=== PATIENT | male | born 1955 | race Caucasian/White ===

== ENCOUNTER 2021-01-18 13:39 | Inpatient (IN) | payer OTHER ==
[2021-01-18] MEDS ORDERED: CEFTRIAXONE 2,000 MG in DEXTROSE 5%-WATER - 50 ML IVPB ONE (14:27)
[2021-01-18 15:04] LABS: EOS % 2.2 % (0-4.5); HEMATOCRIT 40.7 % (35.4-49); HEMOGLOBIN 14.1 GM/dl (11.7-16.9); LYMPH % 36.9 % (8-40); MCH 31.8 pg (25.7-33.7); MCHC 34.6 g/dl (32.0-35.9); MEAN PLT VOLUME 7.6 fl (7.5-11.1); MONO % 11.9 % (3.8-10.2); PLATELET COUNT 141 K/MM3 (134-434); RBC 4.42 M/mm3 (4.00-5.60); RDW 13.2 % (11.9-15.9); WHITE BLOOD COUNT 4.2 K/mm3 (4.0-10.8)
[2021-01-18 15:18] LABS: ALBUMIN 4.1 g/dl (3.4-5.0); ALK PHOS 88 U/L (45-117); ANION GAP 13 MMOL/L (8-16); BILIRUBIN,TOTAL 0.6 mg/dl (0.2-1); CALCIUM 9.1 mg/dl (8.5-10); CHLORIDE 99 mmol/L (98-107); CO2 25 mmol/L (21-32); CREATININE 0.9 mg/dl (0.55-1.3); GLUCOSE,RANDOM 89 mg/dl (74-106); SGOT/AST 70 U/L (15-37); SGPT/ALT 55 U/L (13-61); SODIUM 137 mmol/L (136-145); TOT PROT 7.4 g/dl (6.4-8.2)
[2021-01-18 15:55] LABS: ERYTHROCYTE SEDIMENTATION RATE 13 mm/hr (0-20)
[2021-01-18 18:05] VITALS: BMI 23.6
[2021-01-18] MEDS ORDERED: ALBUTEROL SO4 HFA INHALER IH PRN (20:37)
[2021-01-18] MEDS ORDERED: FOLIC ACID INJECTION - 1 MG, THIAMINE HCL 100 MG, MULTIVIT INJECTION ADULT 10 ML in SOD... IVPB ONE (21:01)
[2021-01-18] MEDS ORDERED: chlordiazePOXIDE HCL 25 MG CAPSULE PO PRN (21:02)
[2021-01-18] MEDS ORDERED: ATORVASTATIN CA 10 MG TABLET (FP) PO SCH (22:00)
[2021-01-18] MEDS: chlordiazePOXIDE HCL 25 MG CAPSULE PO SCH (23:00)
[2021-01-19] MEDS: chlordiazePOXIDE HCL 25 MG CAPSULE PO SCH ×2 (05:22→11:24)
[2021-01-19 07:08] LABS: BASO % 2.3 % (0-2.0); EOS % 7.5 % (0-4.5); HEMATOCRIT 43.5 % (35.4-49); HEMOGLOBIN 14.7 GM/dl (11.7-16.9); LYMPH % 30.7 % (8-40); MCH 31.3 pg (25.7-33.7); MCHC 33.7 g/dl (32.0-35.9); MEAN CELL VOLUME 92.9 fl (80-96); MONO % 12.5 % (3.8-10.2); PLATELET COUNT 131 K/MM3 (134-434); RBC 4.69 M/mm3 (4.00-5.60); RDW 13.3 % (11.9-15.9); WHITE BLOOD COUNT 4.2 K/mm3 (4.0-10.8)
[2021-01-19 07:25] LABS: ALBUMIN 3.7 g/dl (3.4-5.0); BILIRUBIN,TOTAL 1.1 mg/dl (0.2-1); CALCIUM 8.6 mg/dl (8.5-10); TOT PROT 6.7 g/dl (6.4-8.2)
[2021-01-19] MEDS ORDERED: DEXTROSE 5%-WATER 100 ML IVPB ONE (08:15)
[2021-01-19 08:53] VITALS: BP 148/76; PULSE 57; TEMP 98.6
[2021-01-19] MEDS ORDERED: CEFTRIAXONE 2 GM in DEXTROSE 5%-WATER 2 GM/100 ML BAG IVPB SCH (10:00)
[2021-01-19] MEDS ORDERED: THIAMINE HCL 100 MG TABLET (FP) PO SCH (10:00)
[2021-01-19] MEDS ORDERED: MULTIVITAMINS (DAILY MVI) TABLET (FP) PO SCH (10:00)
[2021-01-19] MEDS ORDERED: ASPIRIN 81 MG CHEWABLE TABLETS PO SCH (10:00)
[2021-01-20] MEDS ORDERED: chlordiazePOXIDE HCL 25 MG CAPSULE PO SCH (05:00)
[2021-01-21] MEDS ORDERED: chlordiazePOXIDE HCL 10 MG CAPSULE PO PRN
[2021-01-21] MEDS ORDERED: chlordiazePOXIDE HCL 10 MG CAPSULE PO SCH (05:00)
[2021-01-22] MEDS ORDERED: chlordiazePOXIDE HCL 10 MG CAPSULE PO SCH (05:00)
[2021-01-23] MEDS ORDERED: chlordiazePOXIDE HCL 10 MG CAPSULE PO ONE (05:00)
== END 2021-01-19 14:29 | disposition home or self-care (01) | DRG 724 ==
LOC: FER 13:39 → FM/S 15:04
PROVIDERS: ADMIT Internal Medicine; ATTEND Nurse Practitioner Acute Care
DX: A69.23 Arthritis due to Lyme disease (principal); I10 Essential (primary) hypertension; E78.5 Hyperlipidemia, unspecified; F10.230 Alcohol dependence with withdrawal, uncomplicated; Z20.822 Contact with and (suspected) exposure to COVID-19; M25.561 Pain in right knee; F10.280 Alcohol dependence with alcohol-induced anxiety disorder
CPT/HCPCS: 36415; 80053; 80307; 85025; 85651; 86140; 86618; 93005; 99285-25; C9803; U0003; U0005

== ENCOUNTER 2021-02-03 13:15 | Day surgery (SDC) | payer OTHER ==
[~2021-02-03 13:15] MED LIST: CEFTRIAXONE 2 GM in DEXTROSE 5%-WATER 100 ML IVPB ONE
[2021-02-03] MEDS ORDERED: DEXTROSE 5%-WATER 100 ML IVPB ONE (14:13)
[2021-02-03] MEDS ORDERED: CEFTRIAXONE 2 GM in DEXTROSE 5%-WATER 100 ML IVPB ONE (14:15)
[2021-02-03 15:06] VITALS: BP 144/73; PULSE 70; TEMP 98
== END 2021-02-03 15:00 | disposition home or self-care (01) ==
LOC: JINFUSION 13:15 → J7W 13:21 → JINFUSION 15:00
PROVIDERS: ATTEND Internal Medicine Infectious Disease
PROC: 3E033GC Introduction of Other Therapeutic Substance into Peripheral Vein, Percutaneous Approach (ICD-10-PCS; principal; 2021-02-03)
DX: A69.23 Arthritis due to Lyme disease (principal)
CPT/HCPCS: 96365

== ENCOUNTER 2021-02-04 09:59 | Day surgery (SDC) | payer OTHER ==
[2021-02-04] MEDS ORDERED: CEFTRIAXONE 2 GM in DEXTROSE 5%-WATER 100 ML IVPB ONE (10:00)
[2021-02-04] MEDS ORDERED: DEXTROSE 5%-WATER 100 ML IVPB ONE (10:07)
[2021-02-04 10:27] VITALS: TEMP 98.6
[2021-02-04 11:02] VITALS: BP 114/79; PULSE 56
== END 2021-02-04 11:00 | disposition home or self-care (01) ==
LOC: J7W 09:59 → JINFUSION 09:59
PROVIDERS: ATTEND Internal Medicine Infectious Disease
PROC: 3E033GC Introduction of Other Therapeutic Substance into Peripheral Vein, Percutaneous Approach (ICD-10-PCS; principal; 2021-02-04)
DX: A69.23 Arthritis due to Lyme disease (principal)
CPT/HCPCS: 96365

== ENCOUNTER 2021-02-05 09:35 | Day surgery (SDC) | payer OTHER ==
[2021-02-05 09:52] VITALS: TEMP 97.8
[2021-02-05] MEDS ORDERED: DEXTROSE 5%-WATER 100 ML IVPB ONE (10:00)
[2021-02-05] MEDS ORDERED: CEFTRIAXONE 2 GM in DEXTROSE 5%-WATER 100 ML IVPB ONE (10:00)
[2021-02-05 11:03] VITALS: BP 120/66; PULSE 68
== END 2021-02-05 11:04 | disposition home or self-care (01) ==
LOC: JINFUSION 09:35 → J7W 09:35 → JINFUSION 11:04
PROVIDERS: ATTEND Internal Medicine Infectious Disease
DX: A69.23 Arthritis due to Lyme disease (principal)
CPT/HCPCS: 96365

== ENCOUNTER 2021-02-06 09:19 | Day surgery (SDC) | payer OTHER ==
[2021-02-06] MEDS ORDERED: CEFTRIAXONE 2 GM in DEXTROSE 5%-WATER 100 ML IVPB ONE (10:00)
[2021-02-06] MEDS ORDERED: DEXTROSE 5%-WATER 100 ML IVPB ONE (10:18)
[2021-02-06 11:42] VITALS: BP 114/69; PULSE 62; TEMP 98.6
== END 2021-02-06 10:30 | disposition home or self-care (01) ==
LOC: JINFUSION 09:19 → J7W 09:19 → JINFUSION 10:30
PROVIDERS: ATTEND Internal Medicine Infectious Disease
PROC: 3E033GC Introduction of Other Therapeutic Substance into Peripheral Vein, Percutaneous Approach (ICD-10-PCS; principal; 2021-02-06)
DX: A69.23 Arthritis due to Lyme disease (principal)
CPT/HCPCS: 96365

== ENCOUNTER 2021-02-07 09:51 | Day surgery (SDC) | payer OTHER ==
[2021-02-07] MEDS ORDERED: CEFTRIAXONE 2 GM in DEXTROSE 5%-WATER 100 ML IVPB ONE (10:00)
[2021-02-07] MEDS ORDERED: DEXTROSE 5%-WATER 100 ML IVPB ONE (10:28)
[2021-02-07 11:11] VITALS: BP 132/66; PULSE 52; TEMP 98.8
== END 2021-02-07 11:12 | disposition home or self-care (01) ==
LOC: J7W 09:51 → JINFUSION 09:51
PROVIDERS: ATTEND Internal Medicine Infectious Disease
PROC: 3E033GC Introduction of Other Therapeutic Substance into Peripheral Vein, Percutaneous Approach (ICD-10-PCS; principal; 2021-02-07)
DX: A69.23 Arthritis due to Lyme disease (principal)
CPT/HCPCS: 96365

== ENCOUNTER 2021-02-08 09:59 | Day surgery (SDC) | payer OTHER ==
[2021-02-08] MEDS ORDERED: DEXTROSE 5%-WATER 100 ML IVPB ONE (10:04)
[2021-02-08 10:20] VITALS: TEMP 98
[2021-02-08 15:31] VITALS: BP 117/67; PULSE 81
== END 2021-02-08 13:26 | disposition home or self-care (01) ==
LOC: JINFUSION 09:59 → J7W 10:00 → JINFUSION 13:26
PROVIDERS: ATTEND Internal Medicine Infectious Disease
PROC: 3E033GC Introduction of Other Therapeutic Substance into Peripheral Vein, Percutaneous Approach (ICD-10-PCS; principal; 2021-02-08)
DX: A69.23 Arthritis due to Lyme disease (principal)
CPT/HCPCS: 96365

== ENCOUNTER 2021-02-09 10:21 | Day surgery (SDC) | payer OTHER ==
[2021-02-09] MEDS ORDERED: CEFTRIAXONE 2 GM in DEXTROSE 5%-WATER 100 ML IVPB ONE (10:30)
[2021-02-09] MEDS ORDERED: DEXTROSE 5%-WATER 100 ML IVPB ONE (10:40)
== END 2021-02-09 15:10 | disposition home or self-care (01) ==
LOC: JINFUSION 10:21 → J7W 10:21 → JINFUSION 15:10
PROVIDERS: ATTEND Internal Medicine Infectious Disease
PROC: 3E033GC Introduction of Other Therapeutic Substance into Peripheral Vein, Percutaneous Approach (ICD-10-PCS; principal; 2021-02-09)
DX: A69.23 Arthritis due to Lyme disease (principal)
CPT/HCPCS: 96365

== ENCOUNTER 2021-02-10 09:51 | Day surgery (SDC) | payer OTHER ==
[2021-02-10] MEDS ORDERED: DEXTROSE 5%-WATER 100 ML IVPB ONE (09:53)
[2021-02-10 10:13] VITALS: TEMP 98.5
[2021-02-10] MEDS ORDERED: CEFTRIAXONE 2 GM in DEXTROSE 5%-WATER 100 ML IVPB ONE (10:30)
[2021-02-10 10:59] VITALS: BP 113/64; PULSE 59
== END 2021-02-10 10:50 | disposition home or self-care (01) ==
LOC: J7W 09:51 → JINFUSION 09:51
PROVIDERS: ATTEND Internal Medicine Infectious Disease
PROC: 3E013GC Introduction of Other Therapeutic Substance into Subcutaneous Tissue, Percutaneous Approach (ICD-10-PCS; principal; 2021-02-10)
DX: A69.23 Arthritis due to Lyme disease (principal)
CPT/HCPCS: 96365

== ENCOUNTER 2021-02-11 09:14 | Day surgery (SDC) | payer OTHER ==
[2021-02-11] MEDS ORDERED: CEFTRIAXONE 2 GM in DEXTROSE 5%-WATER 100 ML IVPB ONE (10:00)
[2021-02-11 14:20] VITALS: PULSE 56; TEMP 98.3
[2021-02-11 14:22] VITALS: BP 110/67
== END 2021-02-11 14:49 | disposition home or self-care (01) ==
LOC: JINFUSION 09:14 → J7W 09:16 → JINFUSION 14:49
PROVIDERS: ATTEND Internal Medicine Infectious Disease
PROC: 3E013GC Introduction of Other Therapeutic Substance into Subcutaneous Tissue, Percutaneous Approach (ICD-10-PCS; principal; 2021-02-11)
DX: A69.23 Arthritis due to Lyme disease (principal)
CPT/HCPCS: 96365

== ENCOUNTER 2021-02-12 09:59 | Day surgery (SDC) | payer OTHER ==
[2021-02-12] MEDS ORDERED: DEXTROSE 5%-WATER 100 ML IVPB ONE (10:23)
[2021-02-12 14:36] VITALS: BP 130/75; PULSE 76
== END 2021-02-12 14:36 | disposition home or self-care (01) ==
LOC: JINFUSION 09:59 → J7W 10:00 → JINFUSION 14:36
PROVIDERS: ATTEND Internal Medicine Infectious Disease
DX: A69.23 Arthritis due to Lyme disease (principal)
CPT/HCPCS: 96365

== ENCOUNTER 2021-02-13 10:13 | Day surgery (SDC) | payer OTHER ==
[2021-02-13] MEDS ORDERED: DEXTROSE 5%-WATER 100 ML IVPB ONE (10:47)
[2021-02-13 11:03] VITALS: BP 108/65; PULSE 60; TEMP 98.3
== END 2021-02-13 14:37 | disposition home or self-care (01) ==
LOC: JINFUSION 10:13 → J7W 10:14 → JINFUSION 14:37
PROVIDERS: ATTEND Internal Medicine Infectious Disease
DX: A69.23 Arthritis due to Lyme disease (principal)
CPT/HCPCS: 96365

== ENCOUNTER 2021-02-14 10:05 | Day surgery (SDC) | payer OTHER ==
[~2021-02-14 10:05] MED LIST changes: +CEFTRIAXONE 2 GM in DEXTROSE 5%-WATER - 100 ML IVPB ONE
[2021-02-14] MEDS ORDERED: DEXTROSE 5%-WATER 100 ML IVPB ONE (10:14)
[2021-02-14 12:28] VITALS: TEMP 98
[2021-02-14 16:28] VITALS: BP 135/78; PULSE 67
== END 2021-02-14 16:28 | disposition home or self-care (01) ==
LOC: J7W 10:05 → JINFUSION 10:05
PROVIDERS: ATTEND Internal Medicine Infectious Disease
PROC: 3E033GC Introduction of Other Therapeutic Substance into Peripheral Vein, Percutaneous Approach (ICD-10-PCS; principal; 2021-02-14)
DX: A69.23 Arthritis due to Lyme disease (principal)
CPT/HCPCS: 96365

== ENCOUNTER 2021-02-15 09:48 | Day surgery (SDC) | payer OTHER ==
[~2021-02-15 09:48] MED LIST changes: -CEFTRIAXONE 2 GM in DEXTROSE 5%-WATER - 100 ML IVPB ONE
[2021-02-15] MEDS ORDERED: DEXTROSE 5%-WATER 100 ML IVPB ONE (10:10)
[2021-02-15 11:12] VITALS: BP 137/78; PULSE 77; TEMP 98.3
== END 2021-02-15 11:36 | disposition home or self-care (01) ==
LOC: JINFUSION 09:48 → J7W 09:49 → JINFUSION 11:36
PROVIDERS: ATTEND Internal Medicine Infectious Disease
PROC: 3E033GC Introduction of Other Therapeutic Substance into Peripheral Vein, Percutaneous Approach (ICD-10-PCS; principal; 2021-02-15)
DX: A69.23 Arthritis due to Lyme disease (principal)
CPT/HCPCS: 96365

== ENCOUNTER 2021-02-16 09:24 | Day surgery (SDC) | payer OTHER ==
[2021-02-16] MEDS ORDERED: DEXTROSE 5%-WATER 100 ML IVPB ONE (09:29)
[2021-02-16] MEDS ORDERED: CEFTRIAXONE 2 GM in DEXTROSE 5%-WATER 100 ML IVPB ONE (09:30)
[2021-02-16 11:16] VITALS: BP 135/79; PULSE 74; TEMP 98.1
== END 2021-02-16 14:28 | disposition home or self-care (01) ==
LOC: J7W 09:24 → JINFUSION 09:24
PROVIDERS: ATTEND Internal Medicine Infectious Disease
PROC: 3E033GC Introduction of Other Therapeutic Substance into Peripheral Vein, Percutaneous Approach (ICD-10-PCS; principal; 2021-02-16)
DX: A69.23 Arthritis due to Lyme disease (principal)
CPT/HCPCS: 96365

== ENCOUNTER 2021-02-17 10:41 | Day surgery (SDC) | payer OTHER ==
[2021-02-17] MEDS ORDERED: DEXTROSE 5%-WATER 100 ML IVPB ONE (10:48)
[2021-02-17 11:07] VITALS: BP 99/63; PULSE 97; TEMP 98.1
== END 2021-02-17 14:28 | disposition home or self-care (01) ==
LOC: J7W 10:41 → JINFUSION 10:41
PROVIDERS: ATTEND Internal Medicine Infectious Disease
PROC: 3E033GC Introduction of Other Therapeutic Substance into Peripheral Vein, Percutaneous Approach (ICD-10-PCS; principal; 2021-02-17)
DX: A69.23 Arthritis due to Lyme disease (principal)
CPT/HCPCS: 96365

== ENCOUNTER 2021-02-18 12:30 | Day surgery (SDC) | payer OTHER ==
[2021-02-18] MEDS ORDERED: DEXTROSE 5%-WATER 100 ML IVPB ONE (12:41)
[2021-02-18] MEDS ORDERED: CEFTRIAXONE 2 GM in DEXTROSE 5%-WATER 100 ML IVPB ONE (12:45)
[2021-02-18 12:56] VITALS: BP 103/68; PULSE 62; TEMP 98.5
== END 2021-02-18 15:14 | disposition home or self-care (01) ==
LOC: JINFUSION 12:30 → J7W 12:31 → JINFUSION 15:14
PROVIDERS: ATTEND Internal Medicine Infectious Disease
PROC: 3E033GC Introduction of Other Therapeutic Substance into Peripheral Vein, Percutaneous Approach (ICD-10-PCS; principal; 2021-02-18)
DX: A69.23 Arthritis due to Lyme disease (principal)
CPT/HCPCS: 96365; 96367

== ENCOUNTER 2021-02-19 10:48 | Day surgery (SDC) | payer OTHER ==
[2021-02-19] MEDS ORDERED: DEXTROSE 5%-WATER 100 ML IVPB ONE (10:53)
[2021-02-19 11:12] VITALS: TEMP 98.8
[2021-02-19 12:26] VITALS: BP 99/66; PULSE 65
== END 2021-02-19 12:29 | disposition home or self-care (01) ==
LOC: JINFUSION 10:48 → J7W 10:49 → JINFUSION 12:29
PROVIDERS: ATTEND Internal Medicine Infectious Disease
PROC: 3E033GC Introduction of Other Therapeutic Substance into Peripheral Vein, Percutaneous Approach (ICD-10-PCS; principal; 2021-02-19)
DX: A69.23 Arthritis due to Lyme disease (principal)
CPT/HCPCS: 96365

== ENCOUNTER 2021-02-20 11:13 | Day surgery (SDC) | payer OTHER ==
[2021-02-20 11:33] VITALS: BP 113/66; PULSE 67; TEMP 98.8
[2021-02-20] MEDS ORDERED: DEXTROSE 5%-WATER 100 ML IVPB ONE (11:35)
[2021-02-20] MEDS ORDERED: CEFTRIAXONE 2 GM in DEXTROSE 5%-WATER 100 ML IVPB ONE (11:45)
== END 2021-02-20 12:30 | disposition home or self-care (01) ==
LOC: JINFUSION 11:13 → J7W 11:14 → JINFUSION 12:30
PROVIDERS: ATTEND Internal Medicine Infectious Disease
PROC: 3E033GC Introduction of Other Therapeutic Substance into Peripheral Vein, Percutaneous Approach (ICD-10-PCS; principal; 2021-02-20)
DX: A69.23 Arthritis due to Lyme disease (principal)
CPT/HCPCS: 96365

== ENCOUNTER 2021-02-21 10:23 | Day surgery (SDC) | payer OTHER ==
[2021-02-21] MEDS ORDERED: CEFTRIAXONE 2 GM in DEXTROSE 5%-WATER 100 ML IVPB ONE (10:45)
[2021-02-21] MEDS ORDERED: DEXTROSE 5%-WATER 100 ML IVPB ONE (10:51)
[2021-02-21 11:40] VITALS: BP 132/78; PULSE 82; TEMP 98.6
== END 2021-02-21 11:40 | disposition home or self-care (01) ==
LOC: JINFUSION 10:23 → J7W 10:23 → JINFUSION 11:40
PROVIDERS: ATTEND Internal Medicine Infectious Disease
PROC: 3E033GC Introduction of Other Therapeutic Substance into Peripheral Vein, Percutaneous Approach (ICD-10-PCS; principal; 2021-02-21)
DX: A69.23 Arthritis due to Lyme disease (principal)
CPT/HCPCS: 96365

== ENCOUNTER 2021-02-22 10:33 | Day surgery (SDC) | payer OTHER ==
[2021-02-22 11:12] VITALS: TEMP 98.2
[2021-02-22 12:17] VITALS: BP 108/66; PULSE 66
== END 2021-02-22 12:18 | disposition home or self-care (01) ==
LOC: JINFUSION 10:33 → J7W 10:33 → JINFUSION 12:18
PROVIDERS: ATTEND Internal Medicine Infectious Disease
PROC: 3E033GC Introduction of Other Therapeutic Substance into Peripheral Vein, Percutaneous Approach (ICD-10-PCS; principal; 2021-02-22)
DX: A69.23 Arthritis due to Lyme disease (principal)
CPT/HCPCS: 96365

== ENCOUNTER 2021-02-23 10:54 | Day surgery (SDC) | payer OTHER ==
[2021-02-23] MEDS ORDERED: DEXTROSE 5%-WATER 100 ML IVPB ONE (11:05)
[2021-02-23 12:31] VITALS: BP 102/60; PULSE 54; TEMP 98.8
== END 2021-02-23 12:53 | disposition home or self-care (01) ==
LOC: JINFUSION 10:54 → J7W 10:54 → JINFUSION 12:53
PROVIDERS: ATTEND Internal Medicine Infectious Disease
PROC: 3E033GC Introduction of Other Therapeutic Substance into Peripheral Vein, Percutaneous Approach (ICD-10-PCS; principal; 2021-02-23)
DX: A69.23 Arthritis due to Lyme disease (principal)
CPT/HCPCS: 96365

== ENCOUNTER 2021-02-24 12:01 | Day surgery (SDC) | payer OTHER ==
[2021-02-24] MEDS ORDERED: CEFTRIAXONE 2 GM in DEXTROSE 5%-WATER 100 ML IVPB ONE (12:15)
[2021-02-24] MEDS ORDERED: DEXTROSE 5%-WATER 100 ML IVPB ONE (12:16)
[2021-02-24 12:29] VITALS: TEMP 99
[2021-02-24 13:05] VITALS: BP 98/58; PULSE 66
== END 2021-02-24 13:05 | disposition home or self-care (01) ==
LOC: JINFUSION 12:01 → J7W 12:02 → JINFUSION 13:05
PROVIDERS: ATTEND Internal Medicine Infectious Disease
PROC: 3E033GC Introduction of Other Therapeutic Substance into Peripheral Vein, Percutaneous Approach (ICD-10-PCS; principal; 2021-02-24)
DX: A69.23 Arthritis due to Lyme disease (principal)
CPT/HCPCS: 96365

== ENCOUNTER 2021-02-25 10:05 | Day surgery (SDC) | payer OTHER ==
[2021-02-25] MEDS ORDERED: DEXTROSE 5%-WATER 100 ML IVPB ONE (10:22)
[2021-02-25] MEDS ORDERED: CEFTRIAXONE 2 GM in DEXTROSE 5%-WATER 100 ML IVPB ONE (11:00)
[2021-02-25 12:10] VITALS: BP 106/61; PULSE 62; TEMP 98.6
== END 2021-02-25 12:13 | disposition home or self-care (01) ==
LOC: J7W 10:05 → JINFUSION 10:05
PROVIDERS: ATTEND Internal Medicine Infectious Disease
PROC: 3E033GC Introduction of Other Therapeutic Substance into Peripheral Vein, Percutaneous Approach (ICD-10-PCS; principal; 2021-02-25)
DX: A69.23 Arthritis due to Lyme disease (principal)
CPT/HCPCS: 96365

== ENCOUNTER 2021-02-26 10:44 | Day surgery (SDC) | payer OTHER ==
[2021-02-26] MEDS ORDERED: DEXTROSE 5%-WATER 100 ML IVPB ONE (10:52)
[2021-02-26] MEDS ORDERED: CEFTRIAXONE 2 GM in DEXTROSE 5%-WATER 100 ML IVPB ONE (11:00)
[2021-02-26 14:15] VITALS: BP 131/79; PULSE 83; TEMP 98
== END 2021-02-26 14:33 | disposition home or self-care (01) ==
LOC: J7W 10:44 → JINFUSION 10:44
PROVIDERS: ATTEND Internal Medicine Infectious Disease
PROC: 3E033GC Introduction of Other Therapeutic Substance into Peripheral Vein, Percutaneous Approach (ICD-10-PCS; principal; 2021-02-26)
DX: A69.23 Arthritis due to Lyme disease (principal)
CPT/HCPCS: 96365

== ENCOUNTER 2021-02-27 10:31 | Day surgery (SDC) | payer OTHER ==
[2021-02-27 11:20] VITALS: PULSE 59; TEMP 98
[2021-02-27] MEDS ORDERED: DEXTROSE 5%-WATER 100 ML IVPB ONE (11:23)
[2021-02-27 14:48] VITALS: BP 98/58
== END 2021-02-27 14:48 | disposition home or self-care (01) ==
LOC: JINFUSION 10:31 → J7W 10:32 → JINFUSION 14:48
PROVIDERS: ATTEND Internal Medicine Infectious Disease
PROC: 3E033GC Introduction of Other Therapeutic Substance into Peripheral Vein, Percutaneous Approach (ICD-10-PCS; principal; 2021-02-27)
DX: A69.23 Arthritis due to Lyme disease (principal)
CPT/HCPCS: 96365

== ENCOUNTER 2021-02-28 10:13 | Day surgery (SDC) | payer OTHER ==
[2021-02-28] MEDS ORDERED: DEXTROSE 5%-WATER 100 ML IVPB ONE (10:33)
[2021-02-28 12:38] VITALS: BP 102/64; PULSE 57; TEMP 98.5
== END 2021-02-28 15:56 | disposition home or self-care (01) ==
LOC: JINFUSION 10:13 → J7W 10:14 → JINFUSION 15:56
PROVIDERS: ATTEND Internal Medicine Infectious Disease
PROC: 3E033GC Introduction of Other Therapeutic Substance into Peripheral Vein, Percutaneous Approach (ICD-10-PCS; principal; 2021-02-28)
DX: A69.23 Arthritis due to Lyme disease (principal)
CPT/HCPCS: 96365

== ENCOUNTER 2021-03-01 10:40 | Day surgery (SDC) | payer OTHER ==
[2021-03-01] MEDS ORDERED: DEXTROSE 5%-WATER 100 ML IVPB ONE (10:46)
[2021-03-01 12:04] VITALS: BP 102/68; PULSE 70; TEMP 98.6
== END 2021-03-01 12:05 | disposition home or self-care (01) ==
LOC: JINFUSION 10:40 → J7W 10:40 → JINFUSION 12:05
PROVIDERS: ATTEND Internal Medicine Infectious Disease
PROC: 3E033GC Introduction of Other Therapeutic Substance into Peripheral Vein, Percutaneous Approach (ICD-10-PCS; principal; 2021-03-01)
DX: A69.23 Arthritis due to Lyme disease (principal)
CPT/HCPCS: 96365

== ENCOUNTER 2021-03-02 10:08 | Day surgery (SDC) | payer OTHER ==
[2021-03-02] MEDS ORDERED: DEXTROSE 5%-WATER 100 ML IVPB ONE (10:18)
[2021-03-02 11:56] VITALS: BP 106/66; PULSE 64; TEMP 98.9
== END 2021-03-02 11:56 | disposition home or self-care (01) ==
LOC: JINFUSION 10:08 → J7W 10:08 → JINFUSION 11:56
PROVIDERS: ATTEND Internal Medicine Infectious Disease
DX: A69.23 Arthritis due to Lyme disease (principal)
CPT/HCPCS: 96365

== ENCOUNTER 2021-03-03 10:58 | Day surgery (SDC) | payer OTHER ==
[2021-03-03] MEDS ORDERED: CEFTRIAXONE 2 GM in DEXTROSE 5%-WATER 100 ML IVPB ONE (11:00)
[2021-03-03] MEDS ORDERED: DEXTROSE 5%-WATER 100 ML IVPB ONE (11:12)
[2021-03-03 12:41] VITALS: BP 100/80; PULSE 87; TEMP 98
== END 2021-03-03 12:41 | disposition home or self-care (01) ==
LOC: JINFUSION 10:58 → J7W 10:58 → JINFUSION 12:41
PROVIDERS: ATTEND Internal Medicine Infectious Disease
DX: A69.23 Arthritis due to Lyme disease (principal)
CPT/HCPCS: 96365

== ENCOUNTER 2021-03-04 10:30 | Day surgery (SDC) | payer OTHER ==
[2021-03-04] MEDS ORDERED: CEFTRIAXONE 2 GM in DEXTROSE 5%-WATER 100 ML IVPB ONE (10:45)
[2021-03-04] MEDS ORDERED: DEXTROSE 5%-WATER 100 ML IVPB ONE (10:53)
[2021-03-04 11:37] VITALS: BP 100/58; PULSE 62; TEMP 98.7
== END 2021-03-04 11:44 | disposition home or self-care (01) ==
LOC: JINFUSION 10:30 → J7W 10:31 → JINFUSION 11:44
PROVIDERS: ATTEND Internal Medicine Infectious Disease
DX: A69.23 Arthritis due to Lyme disease (principal)
CPT/HCPCS: 96365

== ENCOUNTER 2023-07-14 10:39 | Emergency (ER) | payer OTHER ==
[2023-07-14 10:43] VITALS: RESP 18; TEMP 97.8; BMI 23.6
[2023-07-14] MEDS ORDERED: LIDOCAINE 5% TOPICAL PATCH TP ONE (12:01)
[2023-07-14] MEDS ORDERED: ACETAMINOPHEN 1000 MG/100 ML BAG IVPB ONE (12:01)
[2023-07-14] MEDS ORDERED: ACETAMINOPHEN INJECTION 100 ML IVPB ONE (12:08)
[2023-07-14] MEDS ORDERED: LIDOCAINE 4% PATCH TP ONE (12:08)
[2023-07-14 13:03] LABS: BASO % 0.6 % (0-2.0); EOS % 0.6 % (0-4.5); HEMATOCRIT 47.8 % (35.4-49); HEMOGLOBIN 16.6 GM/dL (11.7-16.9); MCH 31.3 pg (25.7-33.7); MCHC 34.7 g/dl (32.0-35.9); MEAN CELL VOLUME 90.2 fl (80-96); MEAN PLT VOLUME 7.4 fl (7.5-11.1); MONO % 7.8 % (3.8-10.2); PLATELET COUNT 166 10^3/uL (134-434); RBC 5.29 M/mm3 (4.00-5.60); WHITE BLOOD COUNT 7.5 K/mm3 (4.0-10.0)
[2023-07-14 13:05] LABS: CHLORIDE 98 mmol/L (98-107); SODIUM 128 mmol/L (136-145)
[2023-07-14 13:07] LABS: CALCIUM 8.8 mg/dL (8.5-10.1)
[2023-07-14 13:08] LABS: ALBUMIN 3.9 g/dl (3.4-5.0); CO2 24 mmol/L (21-32); GLUCOSE,RANDOM 94 mg/dL (74-106); MAGNESIUM 1.9 mg/dL (1.8-2.4)
[2023-07-14 13:11] LABS: CREATININE 1.4 mg/dL (0.55-1.3); SGOT/AST 95 U/L (15-37)
[2023-07-14 13:12] LABS: TOT PROT 8.7 g/dl (6.4-8.2)
[2023-07-14] MEDS ORDERED: KETOROLAC TROMETHAMINE 15 MG/ML VIAL IVPUSH ONE (13:12)
[2023-07-14 13:14] LABS: ALK PHOS 81 U/L (45-117)
[2023-07-14] MEDS ORDERED: KETOROLAC TROMETHAMINE 15 MG/ML VIAL ONE (13:23)
[2023-07-14 13:24] LABS: ANION GAP 6 MMOL/L (8-16); POTASSIUM 8.9 mmol/L (3.5-5.1); SGPT/ALT 50 U/L (13-61)
[2023-07-14] MEDS ORDERED: METHOCARBAMOL 500 MG TABLET PO ONE (13:44)
[2023-07-14] MEDS ORDERED: METHOCARBAMOL 500 MG TABLET ONE (14:01)
[2023-07-14 14:33] VITALS: BP 151/98; PULSE 68
[2023-07-14 15:25] LABS: POTASSIUM 3.9 mmol/L (3.5-5.1)
[2023-07-14 15:38] LABS: CALCIUM 9.2 mg/dL (8.5-10.1)
[2023-07-14 15:42] LABS: CREATININE 1.1 mg/dL (0.55-1.3)
[2023-07-14] MEDS ORDERED: LIDOCAINE PATCH REMOVAL MC ONE (22:00)
== END 2023-07-14 16:17 | disposition home or self-care (01) ==
LOC: JER 10:39
PROC: 3E033NZ Introduction of Analgesics, Hypnotics, Sedatives into Peripheral Vein, Percutaneous Approach (ICD-10-PCS; principal; 2023-07-14)
PROC: 3E0333Z Introduction of Anti-inflammatory into Peripheral Vein, Percutaneous Approach (ICD-10-PCS; 2023-07-14)
DX: M79.604 Pain in right leg (principal); M25.551 Pain in right hip; M79.10 Myalgia, unspecified site
CPT/HCPCS: 36415; 72170-TC-FY; 73502-TC-RT-FY; 80048; 80053; 82550; 82553; 83735; 85025; 86618; 96374; 96375; 99284-25